=== PATIENT | female | born 1945 ===

== ENCOUNTER 2021-11-28 05:36 | Day surgery (SDC) | payer OTHER ==
[~2021-11-28 05:36] MED LIST: AMLODIPI PO; COZAAR100 MG PO; HORIZANT300 MG PO; MELOXICAM15 MG PO; TIROSINT88 MCG PO; TOPROL XL25 M1 PO
[2021-11-28] MEDS ORDERED: PERCOCET 5-3251 EACH PO (08:36)
[2021-11-28] MEDS ORDERED: RECTICARE30 GM TOP (08:37)
== END 2021-11-28 12:38 | disposition home or self-care (01) ==
LOC: CIR.AMB 05:36
PROVIDERS: ATTEND Surgery
DX: C21.8 Malignant neoplasm of overlapping sites of rectum, anus and anal canal (principal); Z20.822 Contact with and (suspected) exposure to COVID-19; K62.6 Ulcer of anus and rectum; K62.89 Other specified diseases of anus and rectum; K59.4 Anal spasm; R19.4 Change in bowel habit; I10 Essential (primary) hypertension; E03.9 Hypothyroidism, unspecified; G62.9 Polyneuropathy, unspecified